=== PATIENT | female | born 1990 | race Caucasian/White ===

== ENCOUNTER 2016-09-18 22:37 | Emergency (ER) | payer BC ==
[~2016-09-18] VITALS: Ht 165.1 cm; Wt 113.4 kg
[2016-09-18 22:43] VITALS: BP 134/75
--- NOTE | 2016-09-18 23:14 | NUR ---
TO ER BED 5
--- NOTE | 2016-09-18 23:22 | NUR ---
26Y F PRESENTED IN ER C/O OF PRODUCTIVE COUGH X4 WKS. WITH YELLOWISH MUCUS. AFEBRILE, V/S WNL. NO DISTRESS NOTED.
[2016-09-19 00:10] VITALS: BP 134/75
--- NOTE | 2016-09-19 00:10 | NUR ---
Patient discharged with v/s stable. Written and verbal after care instructions given and explained. Patient alert, oriented and verbalized understanding of instructions. Ambulatory with steady gait. All questions addressed prior to discharge. ID band removed. Patient advised to follow up with PMD. Rx of DEXTROMETHORPHAN, AUGMENTIN given. Patient educated on indication of medication including possible reaction and side effects. Opportunity to ask questions provided and answered.
== END 2016-09-19 00:10 | disposition home or self-care (01) ==
LOC: MED 22:37
DX: J06.9 Acute upper respiratory infection, unspecified (principal)
CPT/HCPCS: 71010; 99283; Q0092